=== PATIENT | female | born 1995 | race Two or more races ===

== ENCOUNTER 2020-07-01 14:21 | Emergency (ER) | payer SELFPAY ==
[~2020-07-01] VITALS: Ht 154.9 cm; Wt 56.7 kg
[2020-07-01 14:30] VITALS: BP 122/89
[2020-07-01 15:20] LABS: Urine Bacteria FEW /hpf (None Seen); Urine Blood 2+ /uL (Negative); Urine Hyaline Cast FEW /lpf (0 - 2); Urine Mucus FEW (None Seen); Urine WBC 1 /hpf (0 - 5)
[2020-07-01] MEDS ORDERED: KETOROLAC TROMETH 60MG/2ML VIAL IM ONE (16:00)
== END 2020-07-01 16:34 | disposition home or self-care (01) ==
LOC: ER 14:21
DX: R10.31 Right lower quadrant pain (principal); N94.6 Dysmenorrhea, unspecified; R11.2 Nausea with vomiting, unspecified; M54.5 Low back pain
CPT/HCPCS: 74176; 81001; 81025; 96372; 99284; J1885